=== PATIENT | male | born 1995 | race Caucasian/White ===

== ENCOUNTER 2021-03-12 22:50 | Emergency (ER) | payer OTHER, SELFPAY ==
--- NOTE | ~2021-03-12 | CT_ITS ---
EXAMINATION: CT SOFT TISSUE NECK WITH CONTRAST CLINICAL INFORMATION: Left swollen tonsil. Change in voice. COMPARISON: None TECHNIQUE: Following the intravenous administration of 60 mL of Omnipaque 350 intravenous contrast, helical imaging was performed in the axial plane with generation of coronal and sagittal reformatted images. This CT examination was performed using dose optimization techniques as appropriate, variously including the following: *Automated exposure control *Adjustment of mA and/or kV according to patient size (this includes techniques or standardized protocols for targeted exams where dose is matched to indication/reason for exam; i.e. extremities or head) *Use of iterative reconstruction technique DLP: 1137 mGy-cm FINDINGS: There is fairly symmetric prominence of the palatine tonsils. Superior to the RIGHT palatine tonsil is a ill-defined hypodense area measuring 1.7 x 1.5 x 1.8 cm, inseparable from the soft palate. There is hazy increased density of the right parapharyngeal fat, which extends anteroinferiorly towards the right submandibular region. Deep spaces of the neck are otherwise symmetric, without evidence of deep space infection or abscess. Mild bilateral level 2A cervical chain adenopathy measuring up to 1.3 cm short axis, with shotty level 3 lymph nodes present on the right as well. The parotid glands are homogeneous in attenuation. The submandibular glands are normal. The laryngeal structures are normal. The carotid sheath vasculature opacify normally. No retropharyngeal fluid collection is seen. The thyroid gland is normal. The superior mediastinum is unremarkable. The lung apices are clear. The mastoid air cells and visualized portions of the paranasal sinuses are well-aerated. The temporomandibular joints are normal. No periapical disease is identified. No osseous abnormalities are seen. The imaged portions of the brain parenchyma are unremarkable. CT/CT soft tissue neck w con IMPRESSION: * There is a 1.8 cm RIGHT peritonsillar abscess, just above the palatine tonsil. * Mild reactive fat stranding/edema present within the right parapharyngeal space extending into the right submandibular region. * Reactive bilateral level 2A cervical chain adenopathy, and shotty right cervical chain lymph nodes. * No evidence of deep space infection
[2021-03-12 22:52] VITALS: BP 150/80; PULSE 81; RESP 17; TEMP 36.9; O2SAT 96; BMI 38.0
--- NOTE | 2021-03-12 23:35 | ED.GENADULT ---
HPI - General Adult General Chief complaint: General Medical Stated complaint: sore throat Source: patient Mode of arrival: ambulatory Limitations: no limitations History of Present Illness HPI narrative: 25-year-old male with past medical history of obesity presents with 3 days of left-sided tonsillar swelling, pain, and difficulty swallowing. States that over the past days that has been more and more difficult to swallow, today he came not swallow saliva. He feels that his neck is tight and noticed a significant change in his voice. Does not report fevers or chills, chest pain or pressure, palpitations, shortness of breath, shortness of breath on exertion, abdominal pain, abdominal distention, dysuria, hematuria, nausea, vomiting, diarrhea, constipation, dizziness, weakness, or changes in vision or hearing. Onset (ago): day(s) (3) Location: mouth and neck Radiation: neck Severity: severe Severity scale (1-10): 10 Quality: burning Pain Consistency: constant Relieving factors: none Exacerbating factors: eating and movement Associated symptoms: denies other symptoms Treatments prior to arrival: none Related Data Allergies Allergy/AdvReac Type Severity Reaction Status Date / Time Penicillins [PENICILLINS] Allergy Intermediate HIVES Verified 03/12/21 22:51 Review of Systems Review of Systems: Constitutional: No Fever, No Chills ENT/Mouth: Positive sore throat with tonsillar swelling, unable to swallow liquid, No Ear Pain, No Hoarseness Eyes: No Eye Pain, No Swelling, No Redness, No Foreign Body Cardiovascular: No Chest Pain, No SOB Respiratory: No Cough, No Dyspnea Gastrointestinal: No Nausea, No Vomiting, No Diarrhea, No abdominal Pain Genitourinary: No Dysuria, No Hematuria Musculoskeletal: positive neck pain, No Myalgias, No Joint Swelling Skin: No Skin lacerations, No rash Neuro: No Weakness, No Numbness, No Paresthesias, No Loss of Consciousness, No Dizziness, No Headache Psych: No Anxiety/Panic, No Depression Heme/Lymph: no easy bruising, no Lymphadenopathy Endocrine: No Polyuria, No Polydipsia Yes all other systems are reviewed and are negative FOR[facility], [facility] Past Medical History Attestation statement: The following information was validated with the patient. Source: old records reviewed Medical History Obesity Social History Social History Advance Directives: No Advance Directives Information Provided: No Physical Exam Vital Signs: Vital Signs: Last Vital Signs Temp 99.3 F 03/13/21 01:42 Pulse 67 03/13/21 01:42 Resp 16 03/13/21 01:42 BP 123/70 03/13/21 01:42 Pulse Ox 98 03/13/21 01:42 Body Mass Index 38.0 Appearance: Alert. Oriented X3. Moderate distress. Head: Normal external exam. Normocephalic. Atraumatic. No Camacho signs noted. No raccoon eyes noted Eyes: PERRLA. EOMI. Conjunctiva and sclera normal. Eyelids normal. ENT: TM's Normal. Pharynx right-sided tonsillar swelling crossing the midline with exudates and erythema. Uvula not visualized. Moist mucous membranes. No drooling noted. No muffled voice noted. Neck: Normal inspection. Neck supple. Bilateral cervical lymphadenopathy noted. CVS: Normal heart rate and rhythm. Heart sound normal. No murmurs noted. Pulses equal to all extremities. Respiratory: No respiratory distress. Painless inspiration. Breath sounds normal. No wheezes/rales/rhonchi noted. Chest nontender. No accessory muscle usage noted or decreased air movement noted. Abdomen: Soft and nontender. Bowel sounds normal in all 4 quadrants. No distention noted. No organomegaly noted. No visible injury noted. Back: No CVA tenderness. Full range of motion noted. Skin: Skin warm and dry. Normal skin color. Normal skin turgor. No rashes/lesions/lacerations noted. Extremities: No lower extremity edema. Extremities exhibit normal range of motion. Extremities nontender. Neuro: cranial nerves 2-12 intact, no focal neural deficits, strength 5/5 to all extremities, No motor deficit. No sensory deficit. Course Course Course Narrative: 25-year-old male presents with 3 days of sore throat, difficulty swallowing and speaking. Patient has visibly enlarged tonsil on the left side with exudates crossing the midline, unable to visualize uvula. Will order ceftriaxone as patient is allergic to penicillin with a rash. Will give Decadron [address] scan of soft tissues pending as well as labs. White count 15.7, lactic is 0.6. No indication of sepsis. Strep, mono and COVID are negative. 3:[address] scan indicates tonsillar abscess with edema and stranding. Patient is not able to swallow secretions. Call out to [facility]. 3:22 a.m., [facility] not excepting stable patients. Call out to [facility]. 3:24 a.m.. Discussion with [facility], they will call us back. 3:35 a.m.. [facility] unable to accept this patient as they are at capacity. Call out to [facility]. 3:43 a.m. discussion with [facility], patient accepted to the emergency department by Dr. Najera. Discussion with patient and family, both verbalized understanding of and agrees to plan of care. Medical Decision Making Differential Diagnosis Differential Diagnosis: Parotiditis, tonsillar abscess, tonsillitis, parapharyngeal cellulitis Medical Records Medical records reviewed: Yes I reviewed the patient's medical records. Lab Data Lab results reviewed: Yes I reviewed the patient's lab results. Result diagrams: 03/13/21 00:34 03/13/21 00:34 Labs: Lab Results 03/12/21 03/12/21 03/12/21 Range/Units 23:33 23:57 23:57 WBC (4.8-10.8) X10*3/uL RBC (4.60-5.80) X10*6/uL Hgb (14.0-18.0) g/dl Hct (42-52) % MCV (80-98) fL MCH (27.0-33.0) pg MCHC (31.0-36.0) g/dl RDW (11.0-16.0) % Plt Count (160-400) X10*3/uL MPV (9.4-12.4) fL Immature Gran % (Auto) (0.0-0.4) % Neut % (Auto) (45-73) % Lymph % (Auto) (20-40) % Ashley % (Auto) (2-11) % Eos % (Auto) (0-4) % Baso % (Auto) (0-2) % Lymph # (Auto) (1.2-4.9) X10*3/uL Ashley # (Auto) (0.1-1.2) X10*3/uL Eos # (Auto) (0.0-0.4) X10*3/uL Baso # (Auto) (0.0-0.2) X10*3/uL Abs Immat Gran (auto) (0.00-0.03) X10*3/uL Absolute Neuts (auto) (2.0-8.3) X10*3/uL Absolute Nucleated RBC (0.0-0.012) X10*3/uL Nucleated RBC % (auto) (0.0-0.2) /100WBC Sodium (135-145) mmol/L Potassium (3.3-5.1) mmol/L Chloride (96-108) mmol/L Carbon Dioxide (22-29) mmol/L Anion Gap (12-20) BUN (9-16) mg/dL Creatinine (0.5-1.4) mg/dL Estim Creat Clear Calc Estimated GFR Random Glucose (60-115) mg/dL Lactic Acid (0.5-2.0) mmol/L Calcium (8.4-10.2) mg/dL COVID-19 (MARIA L) Negative (Negative) COVID-19 Clin Com See Note Monoscreen Negative (Negative) S. pyogenes GrpA VLADISLAV Negative (Negative) 03/13/21 03/13/21 03/13/21 Range/Units 00:34 00:34 00:34 WBC 15.7 H (4.8-10.8) X10*3/uL RBC 4.71 (4.60-5.80) X10*6/uL Hgb 14.8 (14.0-18.0) g/dl Hct 42.9 (42-52) % MCV 91.1 (80-98) fL MCH 31.4 (27.0-33.0) pg MCHC 34.5 (31.0-36.0) g/dl RDW 11.7 (11.0-16.0) % Plt Count 243 (160-400) X10*3/uL MPV 9.3 L (9.4-12.4) fL Immature Gran % (Auto) 0.4 (0.0-0.4) % Neut % (Auto) 76.7 H (45-73) % Lymph % (Auto) 14.3 L (20-40) % Ashley % (Auto) 7.2 (2-11) % Eos % (Auto) 1.1 (0-4) % Baso % (Auto) 0.3 (0-2) % Lymph # (Auto) 2.3 (1.2-4.9) X10*3/uL Ashley # (Auto) 1.1 (0.1-1.2) X10*3/uL Eos # (Auto) 0.2 (0.0-0.4) X10*3/uL Baso # (Auto) 0.1 (0.0-0.2) X10*3/uL Abs Immat Gran (auto) 0.07 H (0.00-0.03) X10*3/uL Absolute Neuts (auto) 12.0 H (2.0-8.3) X10*3/uL Absolute Nucleated RBC 0.000 (0.0-0.012) X10*3/uL Nucleated RBC % (auto) 0.0 (0.0-0.2) /100WBC Sodium 141 (135-145) mmol/L Potassium 4.2 (3.3-5.1) mmol/L Chloride 107 (96-108) mmol/L Carbon Dioxide 25 (22-29) mmol/L Anion Gap 13 (12-20) BUN 16 (9-16) mg/dL Creatinine 0.89 (0.5-1.4) mg/dL Estim Creat Clear Calc 176.2 Estimated GFR > 60 Random Glucose 106 (60-115) mg/dL Lactic Acid 0.6 (0.5-2.0) mmol/L Calcium 9.0 (8.4-10.2) mg/dL COVID-19 (MARIA L) (Negative) COVID-19 Clin Com Monoscreen (Negative) S. pyogenes GrpA VLADISLAV (Negative) Imaging Data CT neck soft tissue: Attestation: I personally reviewed and interpreted this imaging study as follows: Radiologist's impression: EXAMINATION: CT SOFT TISSUE NECK WITH CONTRAST CLINICAL INFORMATION: Left swollen tonsil. Change in voice.? COMPARISON: None? TECHNIQUE: Following the intravenous administration of 60 mL of Omnipaque 350 intravenous contrast, helical imaging was performed in the axial plane with generation of coronal and sagittal reformatted images. This CT examination was performed using dose optimization techniques as appropriate, variously including the following: *Automated exposure control *Adjustment of mA and/or kV according to patient size (this includes techniques or standardized protocols for targeted exams where dose is matched to indication/reason for exam; i.e. extremities or head) *Use of iterative reconstruction technique DLP: 1137 mGy-cm FINDINGS: There is fairly symmetric prominence of the palatine tonsils. Superior to the RIGHT palatine tonsil is a ill-defined hypodense area measuring 1.7 x 1.5 x 1.8 cm, inseparable from the soft palate. There is hazy increased density of the right parapharyngeal fat, which extends anteroinferiorly towards the right submandibular region. Deep spaces of the neck are otherwise symmetric, without evidence of deep space infection or abscess. Mild bilateral level 2A cervical chain adenopathy measuring up to 1.3 cm short axis, with shotty level 3 lymph nodes present on the right as well. The parotid glands are homogeneous in attenuation. The submandibular glands are normal. The laryngeal structures are normal. The carotid sheath vasculature opacify normally. No retropharyngeal fluid collection is seen. The thyroid gland is normal. The superior mediastinum is unremarkable. The lung apices are clear. The mastoid air cells and visualized portions of the paranasal sinuses are well-aerated. The temporomandibular joints are normal. No periapical disease is identified. No osseous abnormalities are seen. The imaged portions of the brain parenchyma are unremarkable. CT/CT soft tissue neck w con IMPRESSION: *? There is a 1.8 cm RIGHT peritonsillar abscess, just above the palatine tonsil. *? Mild reactive fat stranding/edema present within the right parapharyngeal space extending into the right submandibular region. *? Reactive bilateral level 2A cervical chain adenopathy, and shotty right cervical chain lymph nodes. *? No evidence of deep space infection? Critical Care Time Critical Care Time Critical Care Time: Yes Total Critical Care Time: 45 Attestation: I have personally provided critical care time exclusive of time spent on separately billable procedures. Time includes review of laboratory data, radiology results, discussion with consultants, and monitoring for potential decompensation. Interventions were performed as documented. Discharge Plan Discharge Clinical Impression: Tonsillar abscess, Pharyngeal edema Patient Disposition: Xfer Acute Care Hospital Transfer Details: [facility], accepting physician Dr. Najera
[2021-03-12 23:50] LABS: Strep A Nucleic Acid Negative (Negative)
[2021-03-13 00:28] LABS: COVID-19 Test Negative (Negative)
[2021-03-13 00:29] LABS: Monotest Negative (Negative)
[2021-03-13 00:50] LABS: Basophils Absolute Auto 0.1 X10*3/uL (0.0-0.2); Basophils Percent Auto 0.3 % (0-2); Eosinophils Absolute Auto 0.2 X10*3/uL (0.0-0.4); Eosinophils Percent Auto 1.1 % (0-4); Hematocrit 42.9 % (42-52); Hemoglobin 14.8 g/dl (14.0-18.0); Imm Gran Abs Auto 0.07 X10*3/uL (0.00-0.03); Imm Gran Pct Auto 0.4 % (0.0-0.4); Lymphocytes Absolute Auto 2.3 X10*3/uL (1.2-4.9); Lymphocytes Percent Auto 14.3 % (20-40); MANUAL DIFF FLAG NO; Mean Corpuscular HGB Conc 34.5 g/dl (31.0-36.0); Mean Corpuscular Hemoglobin 31.4 pg (27.0-33.0); Mean Corpuscular Volume 91.1 fL (80-98); Mean Platelet Volume 9.3 fL (9.4-12.4); Monocytes Absolute Auto 1.1 X10*3/uL (0.1-1.2); Monocytes Percent Auto 7.2 % (2-11); Neutrophils Percent Auto 76.7 % (45-73); Platelet Count 243 X10*3/uL (160-400); Red Blood Count 4.71 X10*6/uL (4.60-5.80); Red Cell Distribution Width 11.7 % (11.0-16.0); White Blood Count 15.7 X10*3/uL (4.8-10.8)
[2021-03-13] MEDS: dexAMETHasone sod phosphate 10 MG/ML VIAL IVPUSH (00:50)
[2021-03-13] MEDS: cefTRIAXone sodium 1 GM in 0.9 % Sodium Chloride 50 ML IV (00:50)
--- NOTE | 2021-03-13 00:50 | PC.NURSE ---
IV PLACED TO [facility], LABS AND BC X 2 ARE OBTAINED AND SENT TO LAB AT THIS TIME. PT MEDICATED PER EMAR.
[2021-03-13 01:09] LABS: Lactic Acid 0.6 mmol/L (0.5-2.0)
[2021-03-13 01:12] LABS: Anion Gap 13 (12-20); Blood Urea Nitrogen 16 mg/dL (9-16); Carbon Dioxide 25 mmol/L (22-29); Chloride 107 mmol/L (96-108); Creatinine Clr Calc Pharmacy 176.2; Estimated Glomerular Filt Rate > 60; Glucose Random 106 mg/dL (60-115); Potassium 4.2 mmol/L (3.3-5.1); Sodium 141 mmol/L (135-145)
[2021-03-13 01:42] VITALS: BP 123/70; PULSE 67; RESP 16; TEMP 37.4; O2SAT 98
[2021-03-13] MEDS: iohexoL 350 MG/ML 100 ML INFUS..BTL 60 ML IV (02:32)
--- NOTE | 2021-03-13 03:27 | PC.NURSE ---
@0325 @ BC JENKINS REQUEST CALL PLACED TO [facility] PT TX LINE FOR THIS PT POSSIBLE TX LEONARD ANSWERS AND STATES [facility] IS NOT TAKING STABLE TRANSFERS @ THIS TIME CALI MADE AWARE OF THIS, THEN ASKS FOR CALL OUT TO [facility].
--- NOTE | 2021-03-13 03:30 | PC.NURSE ---
@0329 CALL PLACED TO [facility] ACCESS LINE ( OPTION 2) @ REQUEST OF BC GONZALEZ ANSWERS, TAKES PT INFO AND CALL BACK NUMBER THEN ASKS TO SPEAK WITH BC YANCEY TAKES OVER CALL RIGHT AWAY AND IS SPEAKING WITH LISA @ THIS TIME
--- NOTE | 2021-03-13 03:38 | PC.NURSE ---
@0338 BC STATES [facility] CLOSED TO TX DUE TO BEING AT MAXIMUM CAPACITY @ THIS TIME BC ASKS FOR CALL TO BE PLACED TO [facility] OPTION 2 EDWIGE ANSWERS, TAKES PT INFO AND CALL BACK NUMBER AND ASKS TO SPEAK WITH BC. BC TAKES OVER CALL RIGHT AWAY AND SPEAKS WITH EDWIGE @ THIS TIME
--- NOTE | 2021-03-13 03:45 | PC.NURSE ---
PER BC, DR EARL IS ACCEPTING @ [facility] ER @ THIS TIME
--- NOTE | 2021-03-13 03:58 | PC.NURSE ---
@7255 [facility] CALLED FOR ALS TRANSPORT DUE TO PT INSURANCE BEING HNE TIA ANSWERS AND AFTER A BRIEF HOLD EXPLAINS [facility] CAN NOT DO THIS TRANSFER IN A TIMELY MANOR AND THAT THEY HAVE CONTACTED [facility] AND THEY ARE AVAILABLE AND WILLING TO TAKE THIS CALL SHE TAKES PT INFO AND BOOKS THIS CALL WITH [facility] FOR THIS PT TO GO TO [facility]
--- NOTE | 2021-03-13 04:21 | PC.NURSE ---
@ 04:18 CALL RECEIVED FROM LILLI FROM [facility] SAYING THEY ARE UNABLE TO ACCOMMODATE THIS CALL UNTIL 06:30-06:45 DUE TO SHIFT CHANGE ISSUES AND THAT THEY HAVE CONTACTED [facility] TO MAKE THEM AWARE, HE WAS TOLD M=BY [facility] THAT [facility] AVAILABLE TIME WAS STILL SOONER THAN [facility] AVAILABLE TIME FOR THIS TRANSFER. BC JENKINS MADE AWARE OF THIS TX ISSUE AND SHE AGREES LONG THIS IS THE ABSOLUTE LATEST THIS PT WILL HAVE TO WAIT FOR AN ALS TRANSPORT TO [facility], LILLI AT [facility] MADE AWARE OF THIS.
[2021-03-13 04:58] VITALS: BP 149/90; PULSE 62; RESP 16; TEMP 36.8; O2SAT 97
--- NOTE | 2021-03-13 07:03 | ED.GENADULT ---
HPI - General Adult General Chief complaint: General Medical Stated complaint: sore throat Time Seen by Provider: 03/13/21 03:52 Source: patient Mode of arrival: ambulatory Limitations: no limitations History of Present Illness HPI narrative: entered in error please see othr note Location: mouth and neck Severity scale (1-10): 10 Quality: burning Relieving factors: none Exacerbating factors: eating and movement Associated symptoms: denies other symptoms Treatments prior to arrival: none Related Data Allergies Allergy/AdvReac Type Severity Reaction Status Date / Time Penicillins [PENICILLINS] Allergy Intermediate HIVES Verified 03/12/21 22:51 [facility] Past Medical History Medical History Obesity Social History Social History Advance Directives: No Advance Directives Information Provided: No Physical Exam Vital Signs: Vital Signs: Last Vital Signs Temp 98.2 F 03/13/21 04:58 Pulse 62 03/13/21 04:58 Resp 16 03/13/21 07:07 BP 149/90 H 03/13/21 04:58 Pulse Ox 97 03/13/21 04:58 Body Mass Index 38.0 Medical Decision Making Lab Data Result diagrams: 03/13/21 00:34 03/13/21 00:34 Labs: Lab Results 03/12/21 03/12/21 03/12/21 Range/Units 23:33 23:57 23:57 WBC (4.8-10.8) X10*3/uL RBC (4.60-5.80) X10*6/uL Hgb (14.0-18.0) g/dl Hct (42-52) % MCV (80-98) fL MCH (27.0-33.0) pg MCHC (31.0-36.0) g/dl RDW (11.0-16.0) % Plt Count (160-400) X10*3/uL MPV (9.4-12.4) fL Immature Gran % (Auto) (0.0-0.4) % Neut % (Auto) (45-73) % Lymph % (Auto) (20-40) % Ford % (Auto) (2-11) % Eos % (Auto) (0-4) % Baso % (Auto) (0-2) % Lymph # (Auto) (1.2-4.9) X10*3/uL Ford # (Auto) (0.1-1.2) X10*3/uL Eos # (Auto) (0.0-0.4) X10*3/uL Baso # (Auto) (0.0-0.2) X10*3/uL Abs Immat Gran (auto) (0.00-0.03) X10*3/uL Absolute Neuts (auto) (2.0-8.3) X10*3/uL Absolute Nucleated RBC (0.0-0.012) X10*3/uL Nucleated RBC % (auto) (0.0-0.2) /100WBC Sodium (135-145) mmol/L Potassium (3.3-5.1) mmol/L Chloride (96-108) mmol/L Carbon Dioxide (22-29) mmol/L Anion Gap (12-20) BUN (9-16) mg/dL Creatinine (0.5-1.4) mg/dL Estim Creat Clear Calc Estimated GFR Random Glucose (60-115) mg/dL Lactic Acid (0.5-2.0) mmol/L Calcium (8.4-10.2) mg/dL COVID-19 (MARIA L) Negative (Negative) COVID-19 Clin Com See Note Monoscreen Negative (Negative) S. pyogenes GrpA VLADISLAV Negative (Negative) 03/13/21 03/13/21 03/13/21 Range/Units 00:34 00:34 00:34 WBC 15.7 H (4.8-10.8) X10*3/uL RBC 4.71 (4.60-5.80) X10*6/uL Hgb 14.8 (14.0-18.0) g/dl Hct 42.9 (42-52) % MCV 91.1 (80-98) fL MCH 31.4 (27.0-33.0) pg MCHC 34.5 (31.0-36.0) g/dl RDW 11.7 (11.0-16.0) % Plt Count 243 (160-400) X10*3/uL MPV 9.3 L (9.4-12.4) fL Immature Gran % (Auto) 0.4 (0.0-0.4) % Neut % (Auto) 76.7 H (45-73) % Lymph % (Auto) 14.3 L (20-40) % Ford % (Auto) 7.2 (2-11) % Eos % (Auto) 1.1 (0-4) % Baso % (Auto) 0.3 (0-2) % Lymph # (Auto) 2.3 (1.2-4.9) X10*3/uL Ford # (Auto) 1.1 (0.1-1.2) X10*3/uL Eos # (Auto) 0.2 (0.0-0.4) X10*3/uL Baso # (Auto) 0.1 (0.0-0.2) X10*3/uL Abs Immat Gran (auto) 0.07 H (0.00-0.03) X10*3/uL Absolute Neuts (auto) 12.0 H (2.0-8.3) X10*3/uL Absolute Nucleated RBC 0.000 (0.0-0.012) X10*3/uL Nucleated RBC % (auto) 0.0 (0.0-0.2) /100WBC Sodium 141 (135-145) mmol/L Potassium 4.2 (3.3-5.1) mmol/L Chloride 107 (96-108) mmol/L Carbon Dioxide 25 (22-29) mmol/L Anion Gap 13 (12-20) BUN 16 (9-16) mg/dL Creatinine 0.89 (0.5-1.4) mg/dL Estim Creat Clear Calc 176.2 Estimated GFR > 60 Random Glucose 106 (60-115) mg/dL Lactic Acid 0.6 (0.5-2.0) mmol/L Calcium 9.0 (8.4-10.2) mg/dL COVID-19 (MARIA L) (Negative) COVID-19 Clin Com Monoscreen (Negative) S. pyogenes GrpA VLADISLAV (Negative) Discharge Plan Discharge Clinical Impression: Tonsillar abscess, Pharyngeal edema Patient Disposition: Xfer [facility] Hospital Transfer Details: [facility], accepting physician Dr. Najera Interventions: Acute Care Transfer Worksheet (ED) Last Done: 03/13/21 06:29
[2021-03-13 07:07] VITALS: RESP 16
[2021-03-13] MEDS: Morphine Sulfate 4 MG/ML CARTRIDGE IVPUSH (07:07)
--- NOTE | 2021-03-13 07:55 | PC.NURSE ---
pt medicated as charted with morphine for pain. pt denies increasing diff swallowing, answering questions appropriately. awaiting ambulance transport to [facility] at this time. NAD.
== END 2021-03-13 08:26 | disposition short-term general hospital (02) ==
PROVIDERS: Nurse Practitioner Family; Emergency Provider Emergency Medicine
DX: J36 Peritonsillar abscess (principal); J39.2 Other diseases of pharynx; Z20.822 Contact with and (suspected) exposure to COVID-19
CPT/HCPCS: 36415; 70491; 80048; 83605; 85025; 86308; 87040; 87635; 87651; 96365; 96375; 99285; J0696; J1100; J2270; Q9967

== ENCOUNTER 2024-07-17 08:27 | Emergency (ER) | payer OTHER, SELFPAY ==
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
[2024-07-17 08:28] VITALS: BP 149/72; BP 160/100; PULSE 62; PULSE 63; RESP 18; TEMP 35.6; O2SAT 100; O2SAT 97; BMI 35.3
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
[2024-07-17] MEDS: Ketorolac Tromethamine 30 MG/ML VIAL IM (13:42)
[2024-07-17 14:26] VITALS: BP 149/72; PULSE 62; RESP 18; TEMP 35.6; O2SAT 100
== END 2024-07-17 14:26 | disposition home or self-care (01) ==
PROVIDERS: Emergency Provider Student in an Organized Health Care Education/Training Program
DX: S39.92XA Unspecified injury of lower back, initial encounter (principal); R10.2 Pelvic and perineal pain; M54.2 Cervicalgia; M25.532 Pain in left wrist; R51.9 Headache, unspecified; R07.89 Other chest pain; V47.5XXA Car driver injured in collision with fixed or stationary object in traffic accident, initial encounter; Y93.89 Activity, other specified; Y92.488 Other paved roadways as the place of occurrence of the external cause; Y99.8 Other external cause status; Z79.899 Other long term (current) drug therapy
CPT/HCPCS: 70450; 71250; 72125; 73110; 73130; 74176; 96372; 99283; 99284; J1885

== ENCOUNTER → 2024-07-17 10:31 | Outpatient (BNV) | payer SELFPAY | PROVIDERS: Emergency Provider Student in an Organized Health Care Education/Training Program; Visit Provider Radiology Diagnostic Radiology | DX: M54.9 Dorsalgia, unspecified (principal); M54.2 Cervicalgia; R51.9 Headache, unspecified | CPT/HCPCS: 70450; 71250; 72125; 74176 ==